=== PATIENT | male | born 1965 | race Caucasian/White ===

== ENCOUNTER 2020-12-19 15:10 | Inpatient (IN) | payer MEDICARE, MEDICAID, SELFPAY ==
[2020-12-19 17:00] VITALS: BP 113/73; PULSE 82; RESP 18; TEMP 36.9; O2SAT 97
[2020-12-19 17:36] VITALS: BMI 22.8
--- NOTE | 2020-12-19 17:39 | PC.ADMIT ---
Patient is a 55 year old male referred to [facility]'s M-5 unit by [facility]. Patient is transferred to this unit from [facility], [place], [place] where he was seen in their ED at 1:32pm on 12/17/20. [facility]IP [facility] Crisis assessment states patient has been living independently, no contact with Crisis for many years. [facility] Crisis Assessment states Client was reportedly causing a disturbance at a local gas station and when police attempted to arrest him he requested to be evaluated for a mental health assessment. Client was difficult to understand due to presenting w a significant altered mental status. Patient reports he lives in a home in [place] and recently lost the people who had been taking care of him, though refuses to state when. Patient, Pedro presents as alert to self, location, time, but vague on reason for hospitalization. He is dressed in hospital attire; meg pants and gown with disheveled personal hygiene; unkempt hair and vaughan. Pedro changes positions frequently from sitting to pacing across the room throughout admission process, stating he finds the whole process pretentious. He maintains poor eye contact with this writer editor but maintains fixed gaze across the room. Pedro exhibits hyperverbal communication, talking rapidly with a tangential paranoid thought process. Patient refuses to answer questions regarding auditory/visual hallucinations and suicidal/homicidal ideation. Pedro states several times he cannot share information with anyone who is not trustworthy. He struggles to engage with this writer editor, often responding with agitated insults. This writer editor allows for extra time to try to make patient more comfortable, providing reassurance where appropriate. He is given the option of ending the interview several times, but chooses to keep engaging this writer editor. He presents with constricted affect, with eyes widening when discussing paranoid thoughts. Pedro appears to have some insight to his mental illness reporting he experiences paranoia and has been hospitalized in the past. He discusses his distrust for the healthcare community particularly younger providers, asking this writer editor's age. He reports it is difficult for him to answer melding questions to people he doesn't know if he can trust. He makes several statements questioning this writer editor's validity as a real registered nurse on the unit, listing several reasons why he feels this way. Pedro denies any major health concerns but does note he feels he has lost 10lbs - 15lbs though was unable to report over what period of time. Patient reports he is not concerned about his weight loss and states he wants to stop discussing it. He reports he has high cholesterol and wears bi-focal glasses. He denies any alcohol use reporting he quit in 1996. Pedro endorses occasional cannabis use as it is legal now. He reports he is a regular and heavy nicotine and caffeine user reporting he smokes 1.5 packs a day. Pedro states he does not want to use Nicotine replacement products while here. Pedro refuses to discuss natural supports as well as trauma history. Prevalent Presenting Issue: Paranoid Thought Process; Patient standing against wall across from Nursing Station observing staff for long periods of time. R.Brandon. K.Jeffrey. contacted Diane Vega to confirm medication administration in hospital as well as [facility] to complete Medication Req.
[2020-12-19] MEDS: OLANZapine 5 MG TABLET PO (23:51)
[2020-12-19] MEDS: hydrOXYzine HCL 50 MG TABLET PO (23:51)
[2020-12-20] MEDS: traZODone HCL 50 MG TABLET PO (02:52)
[2020-12-20 06:55] VITALS: BP 98/68; PULSE 84; RESP 16; TEMP 36.6; O2SAT 98
[2020-12-20 08:50] LABS: Cholesterol 128 mg/dL; HDL Cholesterol 43 mg/dL; LDL Cholesterol Calculated 72 mg/dl; Triglycerides 68 mg/dL
[2020-12-20 08:58] LABS: Thyroid Stimulating Hormone 0.65 uIU/mL (0.32-4.0)
[2020-12-20 09:24] LABS: Estimated Average Glucose 111 mg/dL; Hemoglobin A1c % 5.5 %
[2020-12-20 09:41] LABS: Folate 17.1 ng/mL (> or = 4.0); Vitamin B12 722 pg/mL (200-900)
--- NOTE | 2020-12-20 12:17 | P.HPPS_ITS ---
HPI Chief Complaint: Schizoaffective D/O Depressive Type PTSD Sources of Information: patient interviewed, chart reviewed and crisis/core team assessment reviewed HPI Subjective Notes: Conditional Voluntary Narrative: The patient is a 55 year old male, single, with no children, living alone, unemployed, with limited social support, with a previous history of psychosis and mood lability. The patient is a poor historian but apparently, in the last 3 days, he had 2 visits to crisis. He was brought to the ED of [facility] by [place] Police since he was found in front of a [employer] station, protesting for [employer] and he was the only one, he was upset, grossly disorganized and confused. During the intake interview, he reported that he has been paranoid [place] and [place] have issues with me , he was seen early by staff responding to internal stimuli and his thought process was tangential with thought blocking at times. Past Psychiatric History: He admitted that his first psychiatric contact was at the age of 19 and he was admitted several times. He admitted taking Zyprexa. As per crisis report, he was assessed before in 2000. No other collateral information at this time Medical Evaluation Reviewed: Yes [facility] Narrative: the patient denies medical problems besides COPD Family History: Denies Social History: The patient is the youngest of 4 children, his milestones were achieved at expected age, he was raised by his parents, reported a good childhood, both parents are , he had his first psychotic break at the age of 19 and he reported several admissions. Substance History: As per crisis report, he had a remote history of alcohol use disorder. Trauma History: Denies Diagnostics Vital Signs (24Hr): Vital Signs - 24 hr 12/19/20 17:00 12/20/20 06:55 Temperature 98.4 F 97.9 F Pulse Rate 82 84 Respiratory Rate 18 16 Blood Pressure 113/73 98/68 Pulse Oximetry 97 98 Body Mass Index 22.8 Labs Labs: Laboratory Results - last 48 hr 12/20/20 12/20/20 12/20/20 07:52 07:52 07:52 Estimat Average Glucose 111 Hemoglobin A1c % 5.5 Triglycerides 68 Cholesterol 128 LDL Cholesterol, Calc 72 HDL Cholesterol 43 Vitamin B12 722 Folate 17.1 TSH 0.65 Meds/Allergies Meds Home Medications Acetaminophen (Acetaminophen 325 Mg Tablet) 650 mg PO Q6H PRN PRN Reason: Headache/Pain Mild Scale (1-3) Al Hydroxide/Mg Hydroxide (Magnesium Hydrox/Alum Hydrox 30 Ml Oral.Susp) 30 ml PO Q6H PRN PRN Reason: Heartburn/Nausea Hydroxyzine HCl (Hydroxyzine Hcl 50 Mg Tablet) 50 mg PO Q6H PRN PRN Reason: Anxiety Last Admin: 12/19/20 23:51 Dose: 50 mg Documented by: Magnesium Hydroxide (Milk Of Magnesia 30 Ml Oral.Susp) 30 ml PO DAILY PRN PRN Reason: Constipation Nicotine (Nicotine 21 Mg Patch.Td24) 21 mg TRANSDERMA DAILY [facility] Last Admin: 12/20/20 09:54 Dose: Not Given Documented by: Nicotine Polacrilex (Nicotine Polacrilex 2 Mg Lozenge) 2 mg BUCCAL Q2H PRN PRN Reason: Nicotine Cravings Olanzapine (Olanzapine 5 Mg Tablet) 5 mg PO BID [facility] Last Admin: 12/20/20 09:55 Dose: Not Given Documented by: Olanzapine (Olanzapine 5 Mg Tablet) 5 mg PO Q6H PRN PRN Reason: agitation Trazodone HCl (Trazodone Hcl 50 Mg Tablet) 50 mg PO BEDTIME PRN PRN Reason: Insomnia Last Admin: 12/20/20 02:52 Dose: 50 mg Documented by: Allergies Allergies Allergy/AdvReac Type Severity Reaction Status Date / Time No Known Allergies Allergy Verified 12/19/20 14:39 Mental Status Exam Mental Status Exam Patient Appearance: Disheveled Patient Orientation: Person, Place and Situation Level of Consciousness: Awake Patient Behavior: Hyperactive, Suspicious, Restless and Avoidant Mood Description: Withdrawn Affect Description: Constricted Patient Cognition Impaired: No Ability to Follow Directions: Poor Speech Pattern: Pressured Hallucinations: Auditory Delusions: Paranoid Ideation Thought Process: Disoriented Thought Content: positive for Thought Blocking Judgement: Poor Assessment & Plan Assessment & Plan (1) Schizoaffective disorder: Status: Acute Qualifiers: Schizoaffective disorder type: depressive Qualified Code(s): F25.1 - Schizoaffective disorder, depressive type Code(s): F25.9 - Schizoaffective disorder, unspecified Assessment and Plan: The patient is a middle age male with Schizoaffective disorder, grossly psychotic, brought by the police to the ED of another hospital.k Plan: Restart Zyprexa Get more collateral Patient educated on: diagnosis and medication risk/benefits Informed Consent: further education needed Reason for continued inpatient stay Substantial Risk for: harm to self, inability to function, rapid decompensation and med/psych decompensation
[2020-12-20 17:53] VITALS: BP 101/77; PULSE 77; RESP 16; TEMP 36.9; O2SAT 98
[2020-12-20] MEDS: OLANZapine 10 MG TABLET PO (20:16)
[2020-12-21] MEDS: hydrOXYzine HCL 50 MG TABLET PO ×2 (00:52→23:52)
[2020-12-21] MEDS: OLANZapine 5 MG TABLET PO ×2 (00:54→23:52)
[2020-12-21 05:50] VITALS: BP 108/65; PULSE 77; RESP 18; TEMP 36.6; O2SAT 98
--- NOTE | 2020-12-21 14:34 | HO.PSYCHPN ---
Subjective Subjective Date of Service: 12/21/20 Reason For Visit: Schizoaffective D/O Depressive Type PTSD Subjective Notes: 3 Day Interim History: The patient remains disorganized and delusional, he wanted me to bring his list of medications and discuss them. Poor historian, he has signed a 3 day notice letter. Medication Compliance: Yes Side effects from medications: No Attending Groups: No Mental Status Exam Mental Status Exam Patient Appearance: Disheveled Patient Orientation: Person, Place and Time Level of Consciousness: Awake and Inappropriate Patient Behavior: Suspicious, Resistive to Care and Uncooperative Mood Description: Depressed Affect Description: Labile Patient Cognition Impaired: No Ability to Follow Directions: Fair Speech Pattern: Rambling Delusions: Paranoid Ideation Thought Process: Racing Thought Content: positive for Flight of Ideas Judgement: Poor Diagnostics Vital Signs (24Hr): Vital Signs - 24 hr 12/20/20 17:53 12/21/20 05:50 Temperature 98.5 F 97.8 F Pulse Rate 77 77 Respiratory Rate 16 18 Blood Pressure 101/77 108/65 Pulse Oximetry 98 98 Body Mass Index 22.8 Labs Labs: Laboratory Results - last 48 hr 12/20/20 12/20/20 12/20/20 07:52 07:52 07:52 Estimat Average Glucose 111 Hemoglobin A1c % 5.5 Triglycerides 68 Cholesterol 128 LDL Cholesterol, Calc 72 HDL Cholesterol 43 Vitamin B12 722 Folate 17.1 TSH 0.65 Medications Medications Current Medications Generic Name Dose Route Start Last Admin Trade Name Freq PRN Reason Stop Dose Admin Acetaminophen 650 mg 12/19/20 14:39 Acetaminophen 325 Mg Tablet PO Q6H PRN Headache/Pain Mild Scale (1-3) Al Hydroxide/Mg Hydroxide 30 ml 12/19/20 14:39 Magnesium Hydrox/Alum Hydrox 30 Ml Oral.Susp PO Q6H PRN Heartburn/Nausea Hydroxyzine HCl 50 mg 12/19/20 14:43 12/21/20 00:52 Hydroxyzine Hcl 50 Mg Tablet PO 50 mg Q6H PRN Administration Anxiety Magnesium Hydroxide 30 ml 12/19/20 14:39 Milk Of Magnesia 30 Ml Oral.Susp PO DAILY PRN Constipation Nicotine 21 mg 12/20/20 09:00 12/21/20 13:34 Nicotine 21 Mg Patch.Td24 TRANSDERMA Not Given DAILY [facility] Nicotine Polacrilex 2 mg 12/19/20 18:49 Nicotine Polacrilex 2 Mg Lozenge BUCCAL Q2H PRN Nicotine Cravings Olanzapine 5 mg 12/19/20 18:46 12/21/20 00:54 Olanzapine 5 Mg Tablet PO 5 mg Q6H PRN Administration agitation Olanzapine 10 mg 12/20/20 21:00 12/20/20 20:16 Olanzapine 10 Mg Tablet PO 10 mg BEDTIME [place] Administration Trazodone HCl 50 mg 12/19/20 14:39 12/20/20 02:52 Trazodone Hcl 50 Mg Tablet PO 50 mg BEDTIME PRN Administration Insomnia Allergies Allergies Allergy/AdvReac Type Severity Reaction Status Date / Time No Known Allergies Allergy Verified 12/19/20 14:39 Assessment & Plan Assessment & Plan (1) Schizoaffective disorder: Qualifiers: Schizoaffective disorder type: depressive Qualified Code(s): F25.1 - Schizoaffective disorder, depressive type Status: Acute Code(s): F25.9 - Schizoaffective disorder, unspecified Assessment and Plan: The patient is a middle age male with Schizoaffective disorder, grossly psychotic, brought by the police to the ED of another hospital.k Plan: Continue Zyprexa Get more collateral Greater than 50% of the session was spent on counseling and/or coordination of care Reason for contiued inpatient stay Substantial Risk for: harm to self, inability to function and rapid decompensation
[2020-12-21 16:30] VITALS: BP 127/80; PULSE 78; TEMP 36.8; O2SAT 95
[2020-12-21] MEDS: OLANZapine 10 MG TABLET PO (22:07)
[2020-12-22] MEDS: traZODone HCL 50 MG TABLET PO ×3 (01:35→23:28)
[2020-12-22 05:54] VITALS: BP 134/82; PULSE 84; RESP 18; TEMP 36.6; O2SAT 96
--- NOTE | 2020-12-22 10:41 | P.PNPSI_ITS ---
Subjective Subjective Date of Service: 12/23/20 Reason For Visit: Schizoaffective D/O Depressive Type PTSD Interim History: Pt presents as very agitated and restless. He is also very guarded and postures at times to staff when asked questions. He shows this remote mortgage underwriter a list of his medications and asks if this is what he is currently on. Pt assured those were still medications active and what he is being given in the unit. Pt increasingly more agitated and suspicious, questioning if this remote mortgage underwriter was lying to him. This remote mortgage underwriter offer to show him his medication list on computer but he declined. He declining answering more questions stating If you can tell me the truth about my medications other questions are mutt Per nursing, pt intermittently agitated, very paranoid and guarded. He is intrusive at times with peers without awareness of their potential reaction. Pt declines to take a shower- malodorous. Appearance: casually groomed- clothes stained, poor hygiene, restless, hypervigilant Behavior: guarded, and suspicious Psychomotor: agitation noted Speech: clear, normal rate/rhythm/volume, spontaneous TP: disorganized TC: paranoia about medications/staff Mood: frustrated Affect:anxious/agitated SI: denies HI:denies AH/VH:responding to internal stimuli Delusions:paranoid towards staff/medications Insight/judgment:impaired x 2. Memory/cog: alert, impaired secondary to psychiatric symptoms. Review of Systems Review of Systems Yes all other systems are reviewed and are negative Diagnostics Vital Signs (24Hr): Vital Signs - 24 hr 12/22/20 17:15 Temperature 97.8 F Pulse Rate 72 Blood Pressure 101/57 L Body Mass Index 22.8 Medications Medications Current Medications Generic Name Dose Route Start Last Admin Trade Name Freq PRN Reason Stop Dose Admin Acetaminophen 650 mg 12/19/20 14:39 Acetaminophen 325 Mg Tablet PO Q6H PRN Headache/Pain Mild Scale (1-3) Al Hydroxide/Mg Hydroxide 30 ml 12/19/20 14:39 Magnesium Hydrox/Alum Hydrox 30 Ml Oral.Susp PO Q6H PRN Heartburn/Nausea Hydroxyzine HCl 50 mg 12/19/20 14:43 12/22/20 21:44 Hydroxyzine Hcl 50 Mg Tablet PO 50 mg Q6H PRN Administration Anxiety Magnesium Hydroxide 30 ml 12/19/20 14:39 Milk Of Magnesia 30 Ml Oral.Susp PO DAILY PRN Constipation Nicotine 21 mg 12/20/20 09:00 12/23/20 09:07 Nicotine 21 Mg Patch.Td24 TRANSDERMA Not Given DAILY [place] Nicotine Polacrilex 2 mg 12/19/20 18:49 Nicotine Polacrilex 2 Mg Lozenge BUCCAL Q2H PRN Nicotine Cravings Olanzapine 5 mg 12/19/20 18:46 12/21/20 23:52 Olanzapine 5 Mg Tablet PO 5 mg Q6H PRN Administration agitation Olanzapine 15 mg 12/23/20 21:00 Olanzapine Odt 10 Mg Tab.Rapdis TRANSLINGU BEDTIME [place] Trazodone HCl 100 mg 12/23/20 09:19 Trazodone Hcl 100 Mg Tablet PO BEDTIME PRN Insomnia Allergies Allergies Allergy/AdvReac Type Severity Reaction Status Date / Time No Known Allergies Allergy Verified 12/19/20 14:39 Assessment & Plan Assessment & Plan (1) Schizoaffective disorder: Qualifiers: Schizoaffective disorder type: depressive Qualified Code(s): F25.1 - Schizoaffective disorder, depressive type Status: Acute Code(s): F25.9 - Schizoaffective disorder, unspecified Assessment and Plan: The patient is a middle age male with Schizoaffective disorder, grossly psychotic, brought by the police to the ED of another hospital.k Plan: Continue Zyprexa Get more collateral Greater than 50% of the session was spent on counseling and/or coordination of care Reason for contiued inpatient stay Substantial Risk for: inability to function
[2020-12-22 17:15] VITALS: BP 101/57; PULSE 72; TEMP 36.6
[2020-12-22] MEDS: OLANZapine ODT 10 MG TAB.RAPDIS TRANSLINGU (21:43)
[2020-12-22] MEDS: hydrOXYzine HCL 50 MG TABLET PO (21:44)
[2020-12-23] MEDS: traZODone HCL 50 MG TABLET PO (02:58)
--- NOTE | 2020-12-23 04:36 | PC.NURSE ---
At start of shift, pt presented as manic, hyperverbal, tangential, with flight of ideas. Pacing the hallway. At approximately 2330 pt received PRN Trazodone 50 mg. Pt presented as very suspicious of medication: examining packaging of medication. Pt asleep at 0045 and awake at 0145. Pt requesting gloves to sort through trash in search of Styrofoam cup: it was there three years ago. It was a job or wasn't a job then you just move on. Pt continued with flight of ideas and illogical thinking: If it was a [place] of mermaids and pleasure, it would be kind of funny. But it doesn't work that way. Have you ever seen livestock being sold augustine? 0230: continued to refuse PRN medication while speaking with pressured speech and pacing hallway. At 0255 Pt received medication for sleep and went to his room. 0330: pt in milieu examining windows and doors. Thery're separate but flush. It's not magic or Heath world it's just they're time. Pt c/o of wound on left toe that was assessed to be full thickness loss but did not show S&S of infection. Gauze applied. While entering medication room stated What would happen if I followed you in there? Pt noted to have increased agitation compared to previous night. Will continue to monitor and report.
--- NOTE | 2020-12-23 10:47 | HO.PSYCHPN ---
Subjective Subjective Date of Service: 12/23/20 Reason For Visit: Schizoaffective D/O Depressive Type PTSD Interim History: Pt asked to meet with this director underwriter sales to go over his medications again. He continues to present as very agitated and restless. He is also very guarded and postures at times to staff when asked questions- yesterday asking for discharged and his phone. We discussed again medications he is currently on but pt states this is not the case and became once again increasingly more agitated. He reports nicotine cravings- offered patch and gum but he declined apparently due to paranoia thinking that what is being offered to him is something else. He is pacing the miller, declining to take shower again today. Per nursing, pt intermittently agitated, very paranoid and guarded. He is intrusive at times with peers without awareness of their potential reaction. Pt declines to take a shower- malodorous. MSE Appearance: casually groomed- clothes stained, poor hygiene, restless, hypervigilant Behavior: guarded, and suspicious Psychomotor: agitation noted Speech: clear, normal rate/rhythm/volume, spontaneous TP: disorganized TC: paranoia about medications/staff Mood: frustrated Affect:anxious/agitated SI: denies HI:denies AH/VH:responding to internal stimuli Delusions:paranoid towards staff/medications Insight/judgment:impaired x 2. Memory/cog: alert, impaired secondary to psychiatric symptoms. Review of Systems Review of Systems Yes all other systems are reviewed and are negative Diagnostics Vital Signs (24Hr): Vital Signs - 24 hr 12/22/20 17:15 Temperature 97.8 F Pulse Rate 72 Blood Pressure 101/57 L Body Mass Index 22.8 Medications Medications Current Medications Generic Name Dose Route Start Last Admin Trade Name Freq PRN Reason Stop Dose Admin Acetaminophen 650 mg 12/19/20 14:39 Acetaminophen 325 Mg Tablet PO Q6H PRN Headache/Pain Mild Scale (1-3) Al Hydroxide/Mg Hydroxide 30 ml 12/19/20 14:39 Magnesium Hydrox/Alum Hydrox 30 Ml Oral.Susp PO Q6H PRN Heartburn/Nausea Hydroxyzine HCl 50 mg 12/19/20 14:43 12/22/20 21:44 Hydroxyzine Hcl 50 Mg Tablet PO 50 mg Q6H PRN Administration Anxiety Magnesium Hydroxide 30 ml 12/19/20 14:39 Milk Of Magnesia 30 Ml Oral.Susp PO DAILY PRN Constipation Nicotine 21 mg 12/20/20 09:00 12/23/20 09:07 Nicotine 21 Mg Patch.Td24 TRANSDERMA Not Given DAILY [place] Nicotine Polacrilex 2 mg 12/19/20 18:49 Nicotine Polacrilex 2 Mg Lozenge BUCCAL Q2H PRN Nicotine Cravings Olanzapine 5 mg 12/19/20 18:46 12/21/20 23:52 Olanzapine 5 Mg Tablet PO 5 mg Q6H PRN Administration agitation Olanzapine 15 mg 12/23/20 21:00 Olanzapine Odt 10 Mg Tab.Rapdis TRANSLINGU BEDTIME [place] Trazodone HCl 100 mg 12/23/20 09:19 Trazodone Hcl 100 Mg Tablet PO BEDTIME PRN Insomnia Allergies Allergies Allergy/AdvReac Type Severity Reaction Status Date / Time No Known Allergies Allergy Verified 12/19/20 14:39 Assessment & Plan Assessment & Plan (1) Schizoaffective disorder: Qualifiers: Schizoaffective disorder type: depressive Qualified Code(s): F25.1 - Schizoaffective disorder, depressive type Status: Acute Code(s): F25.9 - Schizoaffective disorder, unspecified Assessment and Plan: The patient is a middle age male with Schizoaffective disorder, grossly psychotic, brought by the police to the ED of another hospital.k Plan: Increase Zyprexa to 15 mg po qhs- change to zydis Get more collateral Greater than 50% of the session was spent on counseling and/or coordination of care Reason for contiued inpatient stay Substantial Risk for: inability to function
[2020-12-23] MEDS: Acetaminophen 325 MG TABLET 650 MG PO (17:26)
[2020-12-23] MEDS: OLANZapine ODT 10 MG TAB.RAPDIS 15 MG TRANSLINGU (20:40)
[2020-12-23] MEDS: hydrOXYzine HCL 50 MG TABLET PO (20:40)
[2020-12-24] MEDS: traZODone HCL 100 MG TABLET PO (00:25)
[2020-12-24] MEDS: Acetaminophen 325 MG TABLET 650 MG PO (00:25)
--- NOTE | 2020-12-24 00:50 | PC.NURSE ---
Pt's sister, Mielna, is coming to visit on Thursday12/24/20 at 11:30 AM. Pt said he would like his prescriber or pediatric social worker to meet with them and discuss pt's plan of care.
[2020-12-24 05:30] VITALS: BP 100/61; PULSE 74; RESP 18; TEMP 36.6; O2SAT 96
--- NOTE | 2020-12-24 12:12 | HO.PSYCHPN ---
Subjective Subjective Date of Service: 12/24/20 Reason For Visit: Schizoaffective D/O Depressive Type PTSD Subjective Notes: 3 Day Interim History: The patient was assessed in the morning and he reported that he is OK by taking Zyprexa, Trazodone and Vistaril at . Staff has noticed that probably he responds to internal stimuli and yesterday Zyprexa was increased up to 15 mg. He was seen irritable and paranoid with the cameras. Today, his sister came to visit him and he was upset since I told him by mistake that he would be discharged today, when it is schedule for tomorrow. Medication Compliance: Yes Side effects from medications: No Attending Groups: No Mental Status Exam Mental Status Exam Patient Appearance: Disheveled Patient Orientation: Person, Place, Time and Situation Level of Consciousness: Awake Patient Behavior: Belligerent and Verbal Threats Mood Description: Labile Affect Description: Angry Patient Cognition Impaired: No Ability to Follow Directions: Fair Speech Pattern: Clear Memory Description: Intact Hallucinations: None Delusions: Paranoid Ideation Thought Process: Evasive Thought Content: positive for Perseveration Judgement: Fair Diagnostics Vital Signs (24Hr): Vital Signs - 24 hr 12/24/20 05:30 Temperature 97.9 F Pulse Rate 74 Respiratory Rate 18 Blood Pressure 100/61 Pulse Oximetry 96 Body Mass Index 22.8 Medications Medications Current Medications Generic Name Dose Route Start Last Admin Trade Name Freq PRN Reason Stop Dose Admin Acetaminophen 650 mg 12/19/20 14:39 12/24/20 00:25 Acetaminophen 325 Mg Tablet PO 650 mg Q6H PRN Administration Headache/Pain Mild Scale (1-3) Al Hydroxide/Mg Hydroxide 30 ml 12/19/20 14:39 Magnesium Hydrox/Alum Hydrox 30 Ml Oral.Susp PO Q6H PRN Heartburn/Nausea Atorvastatin Calcium 20 mg 12/25/20 09:00 Atorvastatin Calcium 20 Mg Tablet PO DAILY [facility] Hydroxyzine HCl 50 mg 12/19/20 14:43 12/23/20 20:40 Hydroxyzine Hcl 50 Mg Tablet PO 50 mg Q6H PRN Administration Anxiety Magnesium Hydroxide 30 ml 12/19/20 14:39 Milk Of Magnesia 30 Ml Oral.Susp PO DAILY PRN Constipation Nicotine 21 mg 12/20/20 09:00 12/24/20 09:38 Nicotine 21 Mg Patch.Td24 TRANSDERMA Not Given DAILY [facility] Nicotine Polacrilex 2 mg 12/19/20 18:49 Nicotine Polacrilex 2 Mg Lozenge BUCCAL Q2H PRN Nicotine Cravings Olanzapine 5 mg 12/19/20 18:46 12/21/20 23:52 Olanzapine 5 Mg Tablet PO 5 mg Q6H PRN Administration agitation Olanzapine 15 mg 12/23/20 21:00 12/23/20 20:40 Olanzapine Odt 10 Mg Tab.Rapdis TRANSLINGU 15 mg BEDTIME [place] Administration Trazodone HCl 100 mg 12/23/20 09:19 12/24/20 00:25 Trazodone Hcl 100 Mg Tablet PO 100 mg BEDTIME PRN Administration Insomnia Allergies Allergies Allergy/AdvReac Type Severity Reaction Status Date / Time No Known Allergies Allergy Verified 12/19/20 14:39 Assessment & Plan Assessment & Plan (1) Schizoaffective disorder: Qualifiers: Schizoaffective disorder type: depressive Qualified Code(s): F25.1 - Schizoaffective disorder, depressive type Status: Acute Code(s): F25.9 - Schizoaffective disorder, unspecified Assessment and Plan: The patient is a middle age male with Schizoaffective disorder, grossly psychotic, brought by the police to the ED of another hospital.k Plan: Increase Zyprexa to 15 mg po qhs- change to zydis Get more collateral Greater than 50% of the session was spent on counseling and/or coordination of care Reason for contiued inpatient stay Substantial Risk for: inability to function, rapid decompensation and med/psych decompensation
[2020-12-24 16:20] VITALS: BP 106/62; PULSE 90; TEMP 36.8
[2020-12-24] MEDS: hydrOXYzine HCL 50 MG TABLET PO (20:39)
[2020-12-24] MEDS: OLANZapine ODT 10 MG TAB.RAPDIS 15 MG TRANSLINGU (20:40)
--- NOTE | 2020-12-25 01:22 | PC.NURSE ---
Pedro requested some Tylenol at 0120. Patient looked at package of medication and stated This is just weird, you should report that . Medication taken back and returned to [facility]. Patient continues to present with paranoid ideation.
--- NOTE | 2020-12-25 02:34 | PC.NURSE ---
At 0225 patient requested Tylenol and Trazodone PRN. Nurse pulled medication for patient and then patient refused to take medication. Medication was wasted in [facility] and disposed of.
[2020-12-25 05:36] VITALS: BP 115/75; PULSE 78; RESP 16; TEMP 36.5; O2SAT 98
[2020-12-25] MEDS: Atorvastatin Calcium 20 MG TABLET PO (08:45)
--- NOTE | 2020-12-25 11:19 | PM.PSYDC ---
DS: Providers Provider Date of Service: 12/25/20 Date of admission: 12/19/20 15:10 Date of discharge: 12/25/20 Primary care physician: Yoni Dominguez MD Attending physician on discharge: Pedro Tate DS: Diagnosis Discharge Diagnosis (1) Schizoaffective disorder: Status: Acute DS: Medications Discharge Medications Home Medications: Home Medications Medication Instructions Recorded Confirmed atorvastatin 20 mg PO DAILY 12/19/20 12/19/20 Previous Rx's Medication Instructions Recorded atorvastatin 20 mg PO DAILY 14 Days #14 tab 12/25/20 hydroxyzine pamoate [Vistaril] 50 mg PO BEDTIME 14 Days #14 cap 12/25/20 olanzapine [Zyprexa] 15 mg PO BEDTIME 14 Days #14 tab 12/25/20 trazodone 100 mg PO BEDTIME PRN 14 Days #14 12/25/20 tab Discharge Plan Discharge Patient Disposition: Home, Self-Care Discharge Diagnosis: Schizoaffective Disorder Referrals: Dr. Cadena (psychiatrist) [Other] (Voicemail left about discharge. Please follow up for appointment) Yoni Dominguez MD [Primary Care Provider] - 1 Week Discharge Medications: New atorvastatin 20 mg Tablet 20 mg PO DAILY 14 Days Qty: 14 RF: 0 trazodone 100 mg Tablet 100 mg PO BEDTIME PRN (Reason: Insomnia) 14 Days Qty: 14 RF: 0 olanzapine [Zyprexa] 15 mg tablet 15 mg PO BEDTIME 14 Days Qty: 14 RF: 0 hydroxyzine pamoate [Vistaril] 50 mg capsule 50 mg PO BEDTIME 14 Days Qty: 14 RF: 0 Continued atorvastatin 20 mg Tablet 20 mg PO DAILY RF: 0 Discontinued trazodone 50 mg Tablet 50 mg PO BEDTIME RF: 0 benztropine 1 mg Tablet 1 mg PO BEDTIME RF: 0 paroxetine HCl 40 mg Tablet 40 mg PO BEDTIME RF: 0 Discharge Orders: Discharge Order (Routine); Ordered 12/25/20 Ordered By: Pedro Tate Diet: low fat, low cholesterol Activity on Discharge: As tolerated Stand Alone Forms: Patient Portal Discharge page, Community Support Care Plan Goals: Continue psychiatric treatment as an outpatient Health Concerns: F/U with PCP Plan of Treatment: Continue Zyprexa 15 mg po qhs and other medications Assessment: Adult male with Schizoaffective disorder who was fairly stable in the community for years but eventually he decompensated due to non-compliance. Mental Status Exam Mental Status Exam Patient Appearance: Appropriate Patient Orientation: Person, Place, Time and Situation Level of Consciousness: Awake Patient Behavior: Appropriate Mood Description: Calm Affect Description: Constricted Patient Cognition Impaired: No Ability to Follow Directions: Good Speech Pattern: Clear Memory Description: Intact Hallucinations: None Delusions: Not Present Thought Process: Linear Thought Content: positive for Goal Oriented Judgement: Fair Data Data Completed and Pending Completed studies during hospitalization [Text1]: 12/20/20 12/20/20 12/20/20 07:52 07:52 07:52 Estimat Average Glucose 111 Hemoglobin A1c % 5.5 Triglycerides 68 Cholesterol 128 LDL Cholesterol, Calc 72 HDL Cholesterol 43 Vitamin B12 722 Folate 17.1 TSH 0.65 DS: Summary Hospital Course Hospital Course: The patient was initally admitted to the ED of [facility] after he presented twice to crisis in less than a few hours due to psychotic and disorganized behavior. He was transferred into this facility for stablization. We re-started Zyprexa and it needed to be titrated up to 15 mg since he was paranoid, responding to internal stimuli with a very tangential thought process. He signed a 3 day notice letter. He improved, his thought process was linear. We had a family meeting and his sister corroborated the story regarding the chronic mental illness and there was no evidence of safety concerns, so discharge planning was discussed. Time spent discussing smoking cessation with patient: 3 to 10 minutes Status at Discharge Functional status at discharge: independent ambulation Overall status at discharge: patient is back to baseline Time Spent with Patient Time attestation: Total time spent providing and/or coordinating discharge services: Time spent: Less than 30 minutes
--- NOTE | 2020-12-25 14:17 | PC.NURSE ---
Patient walked off the floor by this RN at 12:50pm to a waiting cab. Pt received all his belongings and stated he understood the discharge paperwork. The pt reported he had no questions and left safely in cab.
== END 2020-12-25 13:00 | disposition home or self-care (01) | DRG 885 ==
PROVIDERS: Social Worker; Admitting Provider Psychiatry & Neurology Psychiatry; PCP Internal Medicine; Visit Provider Psychiatry & Neurology Psychiatry
DX: F25.1 Schizoaffective disorder, depressive type (principal); F43.10 Post-traumatic stress disorder, unspecified; F17.210 Nicotine dependence, cigarettes, uncomplicated; Z71.6 Tobacco abuse counseling; Z79.899 Other long term (current) drug therapy
CPT/HCPCS: 36415; 80061; 82607; 82746; 83036; 84443